=== PATIENT | female | born 1945 | race Caucasian/White ===

== ENCOUNTER 2020-11-23 08:36 | Outpatient (REF) | payer MEDICARE, SELFPAY ==
--- NOTE | ~2020-11-23 | MM_ITS ---
EXAMINATION: MM SCREENING DIGITAL BREAST TOMOSYNTHESIS, BILATERAL CLINICAL INFORMATION: Screening. Asymptomatic. The lifetime risk of breast cancer based on the Tyrer-Cuzick Model is 9%. COMPARISON: Mammography: 09/05/2019, 08/13/2018, 07/28/2017 TECHNIQUE: Digital breast tomosynthesis is performed in both the craniocaudal and mediolateral oblique views along with computer-aided detection (CAD). Synthesized 2D images are generated from the tomosynthesis. Additional left CC view is provided. FINDINGS: The breasts are almost entirely fatty (ACR BI-RADS breast composition Category a). There are no significant masses, abnormal calcifications, or other abnormalities. Background stromal densities are stable. There is benign bulky calcification central right breast. No significant changes. MM/MM tomosynthesis screening BI IMPRESSION: No mammographic evidence of malignancy. ASSESSMENT: BI-RADS 2: Benign RECOMMENDATION: Routine annual mammography screening. This patient's information was entered into a reminder system with a target due date for their next mammogram.
== END 2020-11-23 08:37 | disposition home or self-care (01) ==
LOC: HO.MAMMO 08:36
PROVIDERS: Visit Provider Student in an Organized Health Care Education/Training Program
DX: Z12.31 Encounter for screening mammogram for malignant neoplasm of breast (principal)
CPT/HCPCS: 77063; 77067

== ENCOUNTER 2022-01-08 08:30 | Outpatient (REF) | payer OTHER, SELFPAY ==
--- NOTE | ~2022-01-08 | MM_ITS ---
EXAMINATION: MM SCREENING DIGITAL BREAST TOMOSYNTHESIS, BILATERAL CLINICAL INFORMATION: Screening. Asymptomatic. The lifetime risk of breast cancer based on the Tyrer-Cuzick Model is 5%. COMPARISON: Mammography: November 23, 2020 and studies dating back to June 27, 2014 TECHNIQUE: Digital breast tomosynthesis is performed in both the craniocaudal and mediolateral oblique views along with computer-aided detection (CAD). Synthesized 2D images are generated from the tomosynthesis. FINDINGS: The breasts are almost entirely fatty (ACR BI-RADS breast composition Category a). There are no significant masses, abnormal calcifications, or other abnormalities. MM/MM tomosynthesis screening BI IMPRESSION: There are no significant changes from prior study. ASSESSMENT: BI-RADS 1: Negative RECOMMENDATION: Routine annual mammography screening. This patient's information was entered into a reminder system with a target due date for their next mammogram.
== END 2022-01-08 08:31 | disposition home or self-care (01) ==
LOC: HO.MAMMO 08:30
PROVIDERS: PCP Student in an Organized Health Care Education/Training Program; Visit Provider Student in an Organized Health Care Education/Training Program
DX: Z12.31 Encounter for screening mammogram for malignant neoplasm of breast (principal)
CPT/HCPCS: 77063; 77067

== ENCOUNTER 2022-08-07 14:44 | Outpatient (REF) | payer OTHER, SELFPAY ==
--- NOTE | ~2022-08-07 | US_ITS ---
EXAMINATION: US RETROPERITONEAL LIMITED (RENAL ONLY) CLINICAL INFORMATION: Microscopic hematuria. COMPARISON: CT abdomen and pelvis 01/22/2014. TECHNIQUE: Real-time imaging of the kidneys. FINDINGS: RIGHT KIDNEY: 9.9 x 5.0 x 5.7 cm (SAG x AP x TRV). The kidney is normal in size, contour, and echogenicity. Renal cortical thickness is normal. No renal calculi or hydronephrosis. Benign-appearing 1.0 cm cyst. LEFT KIDNEY: 8.1 x 5.7 x 4.2 cm (SAG x AP x TRV). The kidney is normal in size, contour, and echogenicity. Renal cortical thickness is normal. No renal calculi or hydronephrosis. Benign-appearing cysts measuring up to 1.3 cm. US/US renal BI IMPRESSION: Benign-appearing renal cysts. Followup imaging is not routinely recommended for benign appearing cysts..
== END 2022-08-07 14:45 | disposition home or self-care (01) ==
LOC: HO.US 14:44
PROVIDERS: Visit Provider Internal Medicine
DX: R31.29 Other microscopic hematuria (principal)
CPT/HCPCS: 76775

== ENCOUNTER 2022-12-15 10:31 | Outpatient (REF) | payer OTHER, SELFPAY ==
--- NOTE | ~2022-12-15 | US_ITS ---
EXAMINATION: US PELVIS CLINICAL INFORMATION: Pelvic pain. COMPARISON: None TECHNIQUE: Ultrasound of the pelvis is performed using both transabdominal and transvaginal transducers along with Doppler. Transvaginal imaging is performed due to inadequate visualization transabdominally. FINDINGS: Uterus: The uterus is anteverted and measures 5.8 x 2.7 x 3.3 cm. The double wall endometrial thickness is 4 mm. There is anechoic fluid in the endometrial cavity. The uterus is smooth in contour and has normal myometrial echogenicity. No visible fibroid. There are complex nabothian cysts with internal echogenic debris and without vascular tissue. Adnexa: The ovaries are not seen. No pelvic free fluid. US/US pelvic and transvaginal IMPRESSION: Anechoic fluid in the endometrial canal. The endometrial stripe is normal in thickness. Complex nabothian cysts.
== END 2022-12-15 10:32 | disposition home or self-care (01) ==
LOC: HO.US 10:31
PROVIDERS: PCP Family Medicine; Visit Provider Family Medicine
DX: R10.2 Pelvic and perineal pain (principal)
CPT/HCPCS: 76830; 76856

== ENCOUNTER 2023-01-14 09:03 | Outpatient (REF) | payer OTHER, SELFPAY ==
--- NOTE | ~2023-01-14 | MM_ITS ---
EXAMINATION: MM SCREENING DIGITAL BREAST TOMOSYNTHESIS, BILATERAL CLINICAL INFORMATION: Screening. Asymptomatic. The lifetime risk of breast cancer based on the Tyrer-Cuzick Model is 6%. COMPARISON: Mammography: January 08, 2022 and studies dating back to July 22, 2016 TECHNIQUE: Digital breast tomosynthesis is performed in both the craniocaudal and mediolateral oblique views along with computer-aided detection (CAD). Synthesized 2D images are generated from the tomosynthesis. FINDINGS: The breasts are almost entirely fatty (ACR BI-RADS breast composition Category a). There are no significant masses, abnormal calcifications, or other abnormalities. MM/MM tomosynthesis screening BI IMPRESSION: No significant changes from prior exam. ASSESSMENT: BI-RADS 1: Negative RECOMMENDATION: Routine annual mammography screening. This patient's information was entered into a reminder system with a target due date for their next mammogram.
== END 2023-01-14 09:04 | disposition home or self-care (01) ==
LOC: HO.MAMMO 09:03
PROVIDERS: PCP Family Medicine; Visit Provider Student in an Organized Health Care Education/Training Program
DX: Z12.31 Encounter for screening mammogram for malignant neoplasm of breast (principal)
CPT/HCPCS: 77063; 77067

== ENCOUNTER 2023-02-01 15:24 | Outpatient (REF) | payer OTHER, SELFPAY ==
--- NOTE | ~2023-02-01 | XR_ITS ---
EXAMINATION: XR SHOULDER, RIGHT CLINICAL INFORMATION: Pain COMPARISON: Previous x-ray July 2011 TECHNIQUE: AP external rotation, Grashey, scapular Y, and axillary views of the right shoulder. FINDINGS: Bone alignment is normal. No fracture or dislocation. Arthritis at the acromioclavicular and glenohumeral joints. Undersurface acromial osteophyte. Soft tissues are normal. XR/XR shoulder RT min 2V IMPRESSION: Arthritis.
--- NOTE | ~2023-02-01 | XR_ITS ---
EXAMINATION: XR KNEE, LEFT CLINICAL INFORMATION: Pain COMPARISON: None available. TECHNIQUE: Four views of the left knee. FINDINGS: Bone alignment is normal. No fracture or dislocation. There is arthritis at the medial femoral tibial and patellofemoral joints with joint space narrowing and osteophyte formation. There is an osteophyte at the quadriceps tendon insertion to the patella. There is no significant joint effusion. XR/XR knee LT 4V IMPRESSION: Arthritis.
== END 2023-02-01 15:25 | disposition home or self-care (01) ==
LOC: HO.XRAY 15:24
PROVIDERS: PCP Family Medicine; Visit Provider Family Medicine
DX: M25.511 Pain in right shoulder (principal); M25.562 Pain in left knee
CPT/HCPCS: 73030; 73564

== ENCOUNTER 2023-08-06 11:13 | Outpatient (REF) | payer OTHER, SELFPAY ==
[2023-08-06 14:52] LABS: Appearance Urine Clear; Color Urine Yellow; Glucose Urine UA Negative (Negative); Leukocyte Esterase Urine Small (1+) (Negative); Nitrite Urine Negative (Negative); UMIC TRIGGER UA YES; Urine Blood Moderate (2+) (Negative); Urine Ketones Negative (Negative); Urine Protein Negative (Neg-Trace)
[2023-08-06 14:52] LABS: MANUAL DIFF FLAG NO
[2023-08-06 14:57] LABS: Bacteria Urine None Seen (None Seen); Hyaline Casts Urine 0-2 /LPF (0-2); Squamous Epithelial Cell Urine 0-2 /HPF (0-2)
[2023-08-06 15:00] LABS: Basophils Percent Auto 0.1 % (0-2); Eosinophils Percent Auto 0.4 % (0-4); Hemoglobin 13.9 g/dl (12.0-16.0); Imm Gran Abs Auto 0.07 X10*3/uL (0.00-0.03); Imm Gran Pct Auto 0.8 % (0.0-0.4); Lymphocytes Absolute Auto 1.4 X10*3/uL (1.2-4.9); Lymphocytes Percent Auto 16.3 % (20-40); Mean Corpuscular HGB Conc 32.3 g/dl (31.0-35.0); Mean Corpuscular Volume 89.6 fL (80.0-98.0); Mean Platelet Volume 10.2 fL (9.4-12.3); Monocytes Absolute Auto 0.5 X10*3/uL (0.1-1.2); Neutrophils Absolute Auto 6.4 x10*3/uL (2.0-8.3); Neutrophils Percent Auto 76.4 % (45-73); Platelet Count 346 X10*3/uL (160-400); Red Cell Distribution Width 13.4 % (11.0-16.0); White Blood Count 8.4 X10*3/uL (4.8-10.8)
[2023-08-06 15:16] LABS: Alanine Aminotransferase 11 U/L (0-31); Albumin Level 4.1 g/dL (3.5-5.0); Alkaline Phosphatase 85 U/L (39-117); Anion Gap 12 (12-20); Aspartate Amino Transferase 16 U/L (5-31); Bilirubin Total 0.4 mg/dL (0.0-1.0); Blood Urea Nitrogen 14 mg/dL (9-16); Calcium 10.3 mg/dL (8.4-10.2); Carbon Dioxide 24 mmol/L (22-29); Chloride 106 mmol/L (96-108); Cholesterol 160 mg/dL (<200); Estimated Glomerular Filt Rate > 60; Glucose Fasting 108 mg/dL (60-99); HDL Cholesterol 69 mg/dL (>40); LDL Cholesterol Calculated 68 mg/dL (<100); Potassium 4.5 mmol/L (3.3-5.1); Sodium 137 mmol/L (135-145); Total Protein 7.5 g/dL (6.5-8.0); Triglycerides 118 mg/dL (<150)
[2023-08-06 15:30] LABS: Creatinine Urine 165.82 mg/dL; Microalbum/Creatinine Ratio Ur 6.6 ug/mg cr (<30)
[2023-08-06 15:41] LABS: TSH reflex Free T4 1.13 uIU/mL (0.32-4.0); Vitamin D 25-OH Total 52.6 ng/mL (>30)
== END 2023-08-06 11:14 | disposition home or self-care (01) ==
LOC: HO.CHCLDS 11:13
PROVIDERS: Visit Provider Family Medicine
DX: E11.9 Type 2 diabetes mellitus without complications (principal); R53.83 Other fatigue
CPT/HCPCS: 36415; 80053; 80061; 81001; 82043; 82306; 82570; 84443; 85025

== ENCOUNTER 2023-09-01 12:53 | Outpatient (REF) | payer OTHER, SELFPAY | END 2023-09-01 12:54 | disposition home or self-care (01) | LOC: HO.LNP 12:53 | PROVIDERS: PCP Family Medicine; Visit Provider Obstetrics & Gynecology | DX: R31.9 Hematuria, unspecified (principal); R93.5 Abnormal findings on diagnostic imaging of other abdominal regions, including retroperitoneum; N84.1 Polyp of cervix uteri; R10.2 Pelvic and perineal pain; R31.29 Other microscopic hematuria | CPT/HCPCS: 57500; 81002; 87086; 88305; 99202 ==

== ENCOUNTER 2023-09-01 12:53 | Outpatient (AMB) | payer OTHER, SELFPAY ==
--- NOTE | 2023-09-01 13:39 | A.OFFVIS_ITS ---
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 It's intermittent in nature lasting few seconds and occurs few x/week. it is associated with frequency, no dysuria or incontinence, no n/v, no feverishness, no vaginal bleeding or discharge. On 12/16/2019 Pelvic ultrasound showed the following: Uterus: The uterus is anteverted and measures 5.8 x 2.7 x 3.3 cm. The double wall endometrial thickness is 4 mm. There is anechoic fluid in the endometrial cavity. The uterus is smooth in contour and has normal myometrial echogenicity. No visible fibroid. There are complex nabothian cysts with internal echogenic debris and without vascular tissue. Adnexa: The ovaries are not seen. No pelvic free fluid. No history of vaginal bleeding PFSH Medical History Arthritis Osteoporosis Gastritis Sciatic nerve pain Family History Sister Ovarian cancer Daughter Breast cancer Father Prostate cancer Female Reproductive History Menstrual Age of Menarche: 13 control method: none Total pregnancies: 2 Full term: 2 Number of Living Children: 2 Date of last pap smear: 07/06/14 (negative) Review of Systems Const All systems reviewed & are unremarkable except as noted in HPI and below Physical Exam Vital Signs: Last Vital Signs BP 124/80 09/01/23 13:46 BMI result Body Mass Index 32.9 General: Yes no CVA tenderness External Female Exam: normal external appearance and normal appearance of the urethra Speculum Exam - Vagina: normal appearance of the vagina, normal palpation, no lesions and no masses Speculum Exam - Cervix: normal appearance of the cervix, normal palpation, no lesions, no masses, nontender and Other cervical findings present (Endocervical polyp) Bimanual exam- vagina & uterus: normal bimanual exam, normal palpation, uterine size normal, normal palpation, uterine shape normal, No Cervical tenderness present and non-tender Bimanual Exam- Adnexa, other: normal adnexae Back/Spine/Pelvis Back: no CVA tenderness Office Procedures [facility] PLANS STAFF OFFICER Biopsy Before the procedure was started, discussed with the patient the procedure technique, alternatives & all the risks associated with the procedure including but not limited to: bleeding , infection, uterine perforation, injury to bladder, vessels, bowels, possible need for transfusion with all its risks, and others. All questions were answered, the patient verbalized understanding and signed the consent. Urine test done in the office was negative Using a long Sasha Clamp the endocervical polyp was grasped and twisted around till it came off, hemostasis was secured using pressure. The patient tolerated the procedure well. Instructions were given to the patient to call if bleeding, temp>100.4 occur. The patient verbalized understanding and agreed with the plan. This note was generated with a voice recognition program. Some errors may have been overlooked during the review of this note. Sometimes these errors may affect the content or meaning of a given sentence. [id number] of Cervix Procedure code (CPT) selection complete Assessment & Plan Assessment & Plan (1) Abnormal endometrial ultrasound: Code(s): R93.5 - Abnormal findings on diagnostic imaging of other abdominal regions, including retroperitoneum Plan: Discussed with the patient the finding on ultrasound showing anechoic endometrial fluid with an endometrial thickness of 4 mm on ultrasound was done in 12/31, will repeat ultrasound, check the result and treat accordingly, instructions given the patient to schedule a 2 week ultrasound follow-up appointment with possible endometrial sampling to rule out endometrial pathology including endometrial hyperplasia and/or malignancy. Instructions given the patient to schedule an ultrasound and a follow-up appointment. All questions answered, the patient verbalized understanding (2) Endocervical polyp: Code(s): N84.1 - Polyp of cervix uteri Plan: Discussed with the patient the finding on pelvic exam, endocervical polyp, recommended polypectomy. The patient agreed, see procedure note (3) Pelvic pain: Code(s): R10.2 - Pelvic and perineal pain Plan: Repeat pelvic ultrasound ordered. Discussed with the patient the differential diagnosis of pelvic pain including but not limited to adnexal, uterine masses, pelvic infections , GI the (Irritable bowel syndrome, diverticulitis, others), , musculoskeletal, myofascial pain abdominal wall , adhesions, endometrial polyp, psychological and others causes. Will check results and treat accordingly. All questions answered, the patient verbalized understanding. Instructed the patient to schedule follow-up appointment in 2 weeks (4) Microscopic hematuria: Code(s): R31.29 - Other microscopic hematuria Plan: Urine dip done in the office was positive for microscopic blood. Will send urine for culture and schedule follow-up urine dip. If persistent microscopic hematuria with negative urine culture refer to urology. If urine cultures positive will treat accordingly. Instructions given the patient to schedule a urine dip follow-up appointment. All questions answered, the patient verbalized understand Orders: Orders AMB [facility] PL[employer] STAFF OFFICER Biopsy Today N84.1 - Polyp of cervix uteri Surgical Today N84.1 - Polyp of cervix uteri, R31.9 - Hematuria, unspecified Urine Culture Today N84.1 - Polyp of cervix uteri, R31.9 - Hematuria, unspecified Coding Level of Care Code New Pt Level 3 (05915) Diagnoses Abnormal endometrial ultrasound R93.5 Endocervical polyp N84.1 Pelvic pain R10.2 Microscopic hematuria R31.29 CPT Codes [facility] PLANS STAFF OFFICER Biopsy - CPT: 29894-Qyfelz of Cervix ([id number])
[2023-09-01 13:46] VITALS: BP 124/80; BMI 32.9
== END 2023-09-01 14:37 | disposition home or self-care (01) ==
LOC: HO.HWS 12:53
PROVIDERS: PCP Family Medicine; Visit Provider Obstetrics & Gynecology
DX: R93.5 Abnormal findings on diagnostic imaging of other abdominal regions, including retroperitoneum (principal); N84.1 Polyp of cervix uteri; R10.2 Pelvic and perineal pain; R31.29 Other microscopic hematuria
CPT/HCPCS: 57500; 99203

== ENCOUNTER 2023-10-25 15:11 | Outpatient (AMB) | payer OTHER, SELFPAY ==
[2023-10-25 15:12] VITALS: BP 122/80; BMI 32.9
--- NOTE | 2023-10-25 15:12 | MHC.OFFVIS ---
Intake Vital Signs 10/25/23 15:12 Height 5 ft 3 in Weight 186 lb BMI 32.9 BP 122/80 Intake Visit Reasons: urine dip bx results Implementation Specialist Required: Yes Implementation Specialist Language: Library Science Instructor Name: Ever [id number] Allergies No Known Allergies Allergy (Verified 10/25/23 15:17) Is last menstrual period known: No Post menopausal: Yes Patient : No HPI HPI Comments History of Present Illness Details Presenting for repeat urine dip and discuss the results the pathology of polypectomy. Urine culture was negative. Pelvic ultrasound not done . PFSH Medical History Arthritis Osteoporosis Gastritis Sciatic nerve pain Family History Sister Ovarian cancer Daughter Breast cancer Father Prostate cancer Female Reproductive History Menstrual Age of Menarche: 13 control method: none Review of Systems Const All systems reviewed & are unremarkable except as noted in HPI and below Reports as per HPI and Reports no additional complaints GI Reports no additional complaints Reports no additional complaints Physical Exam Vital Signs: Last Vital Signs BP 122/80 10/25/23 15:12 BMI result Body Mass Index 32.9 Results AMB Urinalysis, Automated UA Leukoctes 2 Kishor/uL Last Edit by NIKOS Figueroa on 10/25/23 15:21 UA Nitrite Negative Last Edit by NIKOS Figueroa on 10/25/23 15:21 UA Urobilinogen 0 mg/dL Last Edit by NIKOS Figueroa on 10/25/23 15:21 UA Protein 1 mg/dL Last Edit by NIKOS Figueroa on 10/25/23 15:21 UA pH 6 Last Edit by NIKOS Figueroa on 10/25/23 15:21 UA Blood 3 Hemal/uL Last Edit by NIKOS Figueroa on 10/25/23 15:21 UA Specific Webster 1.030 Last Edit by NIKOS Figueroa on 10/25/23 15:21 UA Ketone Negative Last Edit by NIKOS Figueroa on 10/25/23 15:21 UA Bilirubin 0 mg/dL Last Edit by NIKOS Figueroa on 10/25/23 15:21 UA Glucose 0 mg/dL Last Edit by NIKOS Figueroa on 10/25/23 15:21 Results Reviewed Results Reviewed: Laboratory Last Values Urine pH (Auto) 6 10/25/23 15:20 Specific Webster (Auto) 1.030 10/25/23 15:20 Urine Protein (Auto) 1 mg/dL 10/25/23 15:20 Glucose (UA)(Auto) 0 mg/dL 10/25/23 15:20 Urine Ketones (Auto) Negative 10/25/23 15:20 Urine Blood (Auto) 3 Hemal/uL 10/25/23 15:20 Urine Nitrite (Auto) Negative 10/25/23 15:20 Urine Bilirubin (Auto) 0 mg/dL 10/25/23 15:20 Urine Urobilinogen (Auto) 0 mg/dL 10/25/23 15:20 Leukocyte Esterase (Auto) 2 Kishor/uL 10/25/23 15:20 Assessment & Plan Assessment & Plan (1) Microscopic hematuria: Code(s): R31.29 - Other microscopic hematuria Plan: Repeat urine dip showed persistent microscopic hematuria, since urine culture was negative, will order CT scan and refer to urology for further management (2) Abnormal endometrial ultrasound: Code(s): R93.5 - Abnormal findings on diagnostic imaging of other abdominal regions, including retroperitoneum Plan: Ultrasound ordered, instructions given the patient to schedule an ultrasound follow-up appointment. (3) Endocervical polyp: Code(s): N84.1 - Polyp of cervix uteri Plan: Discussed with patient the results the pathology, the patient was reassured. All questions answered, the patient verbalized understanding Orders: Orders US pelvic and transvaginal Today R93.5 - Abnormal findings on diagnostic imaging of other abdominal regions, including retroperitoneum CT abdomen pelvis wo/w IV con Today R31.29 - Other microscopic hematuria AMB Urinalysis Automated Today R31.29 - Other microscopic hematuria Referrals Urology Referral R31.29 - Other microscopic hematuria Coding Level of Care Code Est Pt Level 3 (26082) Diagnoses Microscopic hematuria R31.29 Abnormal endometrial ultrasound R93.5 Endocervical polyp N84.1
== END 2023-10-25 15:31 | disposition home or self-care (01) ==
LOC: HO.HWS 15:11
PROVIDERS: PCP Family Medicine; Visit Provider Obstetrics & Gynecology
DX: R31.29 Other microscopic hematuria (principal); R93.5 Abnormal findings on diagnostic imaging of other abdominal regions, including retroperitoneum; N84.1 Polyp of cervix uteri
CPT/HCPCS: 99213

== ENCOUNTER → 2023-10-25 15:11 | Outpatient (BNVA) | payer OTHER, SELFPAY | PROVIDERS: PCP Family Medicine; Visit Provider Obstetrics & Gynecology | DX: R93.5 Abnormal findings on diagnostic imaging of other abdominal regions, including retroperitoneum (principal); R31.29 Other microscopic hematuria; N84.1 Polyp of cervix uteri | CPT/HCPCS: 81003; 99212 ==

== ENCOUNTER 2023-11-09 07:16 | Outpatient (REF) | payer OTHER, SELFPAY ==
[2023-11-09 08:11] LABS: Blood Urea Nitrogen 17 mg/dL (9-16); Estimated Glomerular Filt Rate > 60
== END 2023-11-09 07:17 | disposition home or self-care (01) ==
LOC: HO.LAB 07:16
PROVIDERS: PCP Family Medicine; Visit Provider Obstetrics & Gynecology
DX: R93.5 Abnormal findings on diagnostic imaging of other abdominal regions, including retroperitoneum (principal)
CPT/HCPCS: 36415; 82565; 84520

== ENCOUNTER 2023-11-22 15:05 | Outpatient (REF) | payer OTHER, SELFPAY ==
--- NOTE | ~2023-11-22 | US_ITS ---
EXAMINATION: US PELVIS CLINICAL INFORMATION: Abnormal findings on diagnostic imaging prior ultrasound 12/15/2022. Postmenopausal. COMPARISON: 12/16/2022 TECHNIQUE: Ultrasound of the pelvis is performed using both transabdominal and transvaginal transducers along with Doppler. Transvaginal imaging is performed due to inadequate visualization transabdominally. Transabdominal ultrasound images limited due to low bladder volume and bowel gas. FINDINGS: The uterus measures 4.7 x 1.9 x 2.6 cm. No discrete fibroids identified. 1.2 x 1.1 x 1.1 cm complex nabothian cysts with internal echogenic debris. Previous exam of 12/15/2022 demonstrated a 1.2 x 1.0 x 1.1 cm complex nabothian cysts. The double-wall endometrial thickness is 2 mm, previously 4 mm. Trace amount of fluid within the endometrial cavity, decreased since the prior exam. Bilateral ovaries were not visualized. No significant free fluid. US/US pelvic and transvaginal IMPRESSION: 1. The double wall endometrial thickness is 2 mm, previously 4 mm. Trace amount of fluid within the endometrial cavity, decreased since the prior exam. 2. Bilateral ovaries were not visualized. 3. Complex 1.2 cm nabothian cyst with internal echogenic debris. Previous exam of 12/15/2022 demonstrated a 1.2 cm complex nabothian cyst.
== END 2023-11-22 15:06 | disposition home or self-care (01) ==
LOC: HO.US 15:05
PROVIDERS: PCP Family Medicine; Visit Provider Obstetrics & Gynecology
DX: R93.5 Abnormal findings on diagnostic imaging of other abdominal regions, including retroperitoneum (principal)
CPT/HCPCS: 76830; 76856

== ENCOUNTER 2023-12-21 13:49 | Outpatient (REF) | payer OTHER, SELFPAY ==
[2023-12-21 16:38] LABS: Urine Cytology See Pathology rpt
== END 2023-12-21 13:50 | disposition home or self-care (01) ==
LOC: HO.LNP 13:49
PROVIDERS: PCP Family Medicine; Visit Provider Nurse Practitioner Family
DX: R31.29 Other microscopic hematuria (principal); M81.0 Age-related osteoporosis without current pathological fracture; R33.9 Retention of urine, unspecified; Z79.899 Other long term (current) drug therapy
CPT/HCPCS: 81003; 88112; 99202

== ENCOUNTER 2023-12-21 13:49 | Outpatient (AMB) | payer OTHER, SELFPAY ==
--- NOTE | 2023-12-21 14:00 | A.OFFVIS_ITS ---
Intake Intake Visit Reasons: micro hematuria Intake Note: Patient presents today for a follow-up Meds- Tolterodine, Allergies to Antibiotic- No Known Allergies Blood Thinner- Aspirin Fire Assistant Required: Yes Fire Assistant Name: STEPH HOLLOWAYANGEL Accompanied by: Self / Same As Patient Allergies No Known Allergies Allergy (Verified 12/21/23 22:01) Medication List - Last Reconciled 12/21/23 by ALFA Ramirez- albuterol sulfate 90 mcg/actuation inhalation ammonium lactate 12% 1 appl topical BID aspirin 1 tab PO DAILY blood sugar diagnostic (OneTouch Ultra Test strips) As directed blood-glucose meter (Hexaformeruch Ultra2 Meter) As directed calcium carbonate-vitamin D3 600 mg-10 mcg (400 unit) tabs PO DAILY clonazepam mg PO clotrimazole-betamethasone 1-0.05 % appl topical fluticasone propionate 250 mcg/actuation (Flovent Diskus) inhalation ibuprofen mg PO lancets (FreeStyle Lancets) As directed loratadine 10 mg PO DAILY meclizine mg PO nitroglycerin 0.4%(w/w) (Rectiv) SC DAILY omeprazole 20 mg PO DAILY pantoprazole 40 mg PO DAILY peg 400-propylene glycol 0.4-0.3 % (Systane (propylene glycol)) 1 drp ophthalmic (eye) rosuvastatin 40 mg PO DAILY tizanidine 2 mg PO TID tolterodine ER 4 mg PO DAILY triamcinolone acetonide 0.5% appl topical HPI HPI Comments History of Present Illness Details Rebeca is a very pleasant 78-year-old Belarusian-speaking female patient of Dr. Combs. She has a PMH of arthritis, osteoporosis, gastritis, hyperlipidemia, and sciatica nerve pain. She presents to the office today as a new patient for microscopic hematuria. In discussion with the patient today she reports having followed up with manager gyn at which time she was noted to have microscopic hematuria in recommendations were made for urology referral. It appears CT urogram was ordered however patient with upcoming appointment on 12/27. In discussion with the patient today she denies any bothersome urinary issues or concerns. She denies any previous chemical workplace exposure and or history of smoking. She denies urinary urgency, urinary frequency, inco ntinence, nocturia, gross hematuria, dysuria, foul smelling urine, changes to urinary stream, flank pain, fever, and or chills. She is happy with her current voiding parameters on 4 mg of tolterodine daily. Discussed at length potential causes for microscopic hematuria. Discussed further workup versus surveillance monitoring. Discussed risks and benefits of these interventions. She otherwise offers no other issues or concerns at this time. [facility] Medical History Arthritis Osteoporosis Gastritis Sciatic nerve pain Family History Sister Ovarian cancer Daughter Breast cancer Father Prostate cancer Female Reproductive History Menstrual Age of Menarche: 13 Review of Systems Const Reports as per HPI Eyes Reports no additional complaints ENT Reports no additional complaints Card Reports as per HPI Resp Reports no additional complaints GI Reports as per HPI Reports as per HPI Musc Reports as per HPI Neuro Reports no additional complaints Psych Reports no additional complaints Endo Reports as per HPI Monroe/Lymph Reports no additional complaints Aller/Immun Reports no additional complaints Physical Exam Const General: cooperative, healthy appearing, comfortable, no acute distress, well developed, alert and awake Orientation/consciousness: patient oriented x3 Limitations: no limitations HEENT Head: Yes normal to inspection, Yes normocephalic and Yes atraumatic Ears: hearing grossly normal bilaterally Eyes General: appearance normal, both eyes and all related structures Neck Neck: Yes normal visual inspection and Yes trachea midline Chest Chest palpation & inspection: normal inspection of the chest Resp Effort & Inspection: normal respiratory effort and able to speak in complete sentences Cardio Rate: regular rate GI Inspection: Yes normal to inspection General: Yes no CVA tenderness Back/Spine/Pelvis Back: no CVA tenderness Skin General skin exam: no rashes or lesions noted Neuro General: patient oriented x3 Extrem General: Yes normal to inspection Psych Appearance: grossly normal and well kempt Mental Status: mental status grossly normal Speech and movement: Normal speech and movement present and Clear speech present Affect: normal affect Attitude: cooperative Thought process: Normal thought process present Thought content: Normal thought content present Insight: Fair insight present (Psych) Judgement: Fair judgement present (Psych) Results AMB Urinalysis, Automated UA Leukoctes 15 Kishor/uL Last Edit by Lina Leavitt [facility] on 12/21/23 14:11 UA Nitrite Negative Last Edit by Lina Leavittjersey Leavitt [facility] on 12/21/23 14: 11 UA Urobilinogen 0.2 mg/dL Last Edit by Lina Leavittjersey Leavitt [facility] on 4 14:11 UA Protein 15 mg/dL Last Edit by [facility] on 12/21/23 14:1 1 UA pH 6.0 [facility] on 12/21/23 14:11 UA Blood 200 Hemal/uL [facility] on 12/21/23 14:1 1 UA Specific Lejunior 1.015 Last Edit by Lina Leavitt [facility] on 14:11 UA Ketone Positive [facility] on 12/21/23 14:1 1 5MG/DL [facility] 12/21/23 14:11 UA Bilirubin 0 mg/dL Last Edit [facility] on 12/21/23 14: 11 UA Glucose 0 mg/dL Last Edit [facility], [facility] on 12/21/23 14:11 Results Reviewed Results Reviewed: Laboratory Last Values Urine pH (Auto) 6.0 12/21/23 14:06 Specific Lejunior (Auto) 1.015 12/21/23 14:06 Urine Protein (Auto) 15 mg/dL 12/21/23 14:06 Glucose (UA)(Auto) 0 mg/dL 12/21/23 14:06 Urine Ketones (Auto) Positive 12/21/23 14:06 Urine Blood (Auto) 200 Hemal/uL 12/21/23 14:06 Urine Nitrite (Auto) Negative 12/21/23 14:06 Urine Bilirubin (Auto) 0 mg/dL 12/21/23 14:06 Urine Urobilinogen (Auto) 0.2 mg/dL 12/21/23 14:06 Leukocyte Esterase (Auto) 15 Kishor/uL 12/21/23 14:06 Assessment & Plan Assessment & Plan (1) Microscopic hematuria: Code(s): R31.29 - Other microscopic hematuria Plan In office urinalysis results reviewed with the patient today; as noted above; will send for urine cytology. Patient denies any bothersome urinary issues or concerns. She reports be happy with current voiding parameters on tolterodine 4 mg daily. Discussed at length potential causes of microscopic hematuria. Discussed treatment options with surveillance monitoring verses further workup; this was discussed at length; discussed risks and benefits of these interventions. Keep scheduled CT as discussed. Will schedule for in office cystoscopy for further assessment evaluation. Follow-up in office cystoscopy; or sooner with any issues, concerns, and or questions. Orders: Orders AMB Urinalysis Automated Today R33.9 - Retention of urine, unspecified Urine Cytology Today R31.29 - Other microscopic hematuria Patient Instructions: The patient had an opportunity to ask questions regarding the treatment plan. All questions were answered. Physical exam, labs, and imaging were discussed and reviewed in detail. As well as risks, benefits, and discussion of treatment choices. No major barriers to understanding were identified. The patient expressed understanding and agreement with the above treatment plan. The patient was made aware they should contact our office by phone for worsening of their current condition, the appearance of new symptoms, or with any questions or concerns. Compliance is encouraged with any medications and follow up testing that is ordered. It is a privilege to be allowed the opportunity to participate in? your urological care.? Again, if you have any questions or concerns If you have any questions or concerns please do not hesitate to contact me. The office is [phone]. This note is constructed using voice recognition software. While every effort has been made to ensure accuracy otolaryngologist errors may have been included. Yours sincerely, SARAH Ramirez Coding Level of Care Code New Pt Level 3 (00425) Diagnoses Microscopic hematuria R31.29
== END 2023-12-21 14:48 | disposition home or self-care (01) ==
PROVIDERS: PCP Family Medicine; Visit Provider Nurse Practitioner Family
DX: R31.29 Other microscopic hematuria (principal)
CPT/HCPCS: 99203

== ENCOUNTER 2023-12-28 10:36 | Outpatient (REF) | payer OTHER, SELFPAY ==
--- NOTE | ~2023-12-28 | CT_ITS ---
EXAMINATION: CT ABDOMEN AND PELVIS WITHOUT AND WITH CONTRAST CLINICAL INFORMATION: Microscopic hematuria. COMPARISON: CT abdomen and pelvis dated 01/22/2014. TECHNIQUE: Multidetector volumetric imaging was performed of the abdomen and pelvis before and after the IV administration of 85 mL of Omnipaque 350 intravenous contrast. Sagittal and coronal reformatted images were obtained on the technologist's workstation. This CT examination was performed using dose optimization techniques as appropriate, variously including the following: *Automated exposure control *Adjustment of mA and/or kV according to patient size (this includes techniques or standardized protocols for targeted exams where dose is matched to indication/reason for exam; i.e. extremities or head) *Use of iterative reconstruction technique DLP: 993.00 mGy-cm FINDINGS: LUNG BASES: The visualized lung bases are unremarkable. There is an incompletely covered left Bochdalek hernia, which is new from prior. LIVER, GALLBLADDER, AND BILIARY TREE: The liver is normal in size, shape, and attenuation. No focal hepatic lesion or biliary ductal dilatation is present. The gallbladder is unremarkable with no evidence of radiopaque gallstones, gallbladder wall thickening, or obvious pericholecystic inflammatory changes. PANCREAS: Unremarkable SPLEEN: Unremarkable ADRENAL GLANDS: Unremarkable KIDNEYS AND URETERS: The kidneys are normal in size, shape, and attenuation. At the lower pole of the left kidney (2:38), a 1.2 cm mildly complex (Bosniak 2) cyst is seen, with fine septation. This is likely benign and requires no imaging follow-up. There are multiple further small low-attenuation bilateral renal cysts, too small for full characterization with CT. These require no imaging follow-up. No hydronephrosis, hydroureter, or calculi seen. No perinephric stranding. BLADDER: Unremarkable GASTROINTESTINAL TRACT: There is a mild stool burden. There is mild diverticulosis, without acute diverticulitis. No obstruction, free intraperitoneal air or abscess is seen. There is no focal bowel wall thickening. The vermiform appendix appears normal. ABDOMINAL WALL: No significant hernia is appreciated. LYMPH NODES: Normal VASCULAR: Unremarkable PELVIC VISCERA: The uterus and adnexa are unremarkable. OSSEOUS STRUCTURES: There is multi-level marked lower thoracic and mild lumbar spondylosis. No acute or aggressive osseous finding is noted. CT/CT abdomen pelvis wo/w IV con IMPRESSION: 1. There are likely benign mildly complex (Bosniak 2) and benign simple (Bosniak 1) bilateral renal cysts. These require no imaging follow-up. No urinary mass, calculus or hydronephrosis is seen bilaterally. 2. There is mild diverticulosis, without acute diverticulitis. 3. No abdominopelvic mass, free fluid lymphadenopathy is seen. 4. There are degenerative changes of the thoracolumbar spine. Fleischner guidelines were followed.
[2023-12-28] MEDS: iohexoL 350 MG/ML 100 ML INFUS..BTL IV (11:45)
[2023-12-29 07:30] LABS: Creatinine POC 0.9 mg/dL (0.5-1.4); GFR POC > 60
== END 2023-12-28 10:37 | disposition home or self-care (01) ==
LOC: HO.CT 10:36
PROVIDERS: PCP Family Medicine; Visit Provider Obstetrics & Gynecology
DX: R31.29 Other microscopic hematuria (principal)
CPT/HCPCS: 74178; 82565; Q9967

== ENCOUNTER 2023-12-29 10:33 | Outpatient (AMB) | payer OTHER, SELFPAY ==
--- NOTE | 2023-12-29 10:36 | MHC.OFFVIS ---
Intake Vital Signs 12/29/23 10:40 Height 5 ft 3 in Weight 185 lb 3.013 oz BMI 32.8 BP 122/74 Intake Visit Reasons: U/S results Density Control Puncher Required: Yes Density Control Puncher Language: Automatic Pinsetter Mechanic Name: Teressa KNOTT Information Interpreted: non-clinical & clinical Accompanied by: Friend Allergies No Known Allergies Allergy (Verified 12/29/23 10:41) HPI HPI Comments History of Present Illness Details Presenting for follow-up ultrasound. No complaints no vaginal bleeding or any other concerns. Pelvic ultrasound showed the following: The uterus measures 4.7 x 1.9 x 2.6 cm. No discrete fibroids identified. 1.2 x 1.1 x 1.1 cm complex nabothian cysts with internal echogenic debris. Previous exam of 12/15/2022 demonstrated a 1.2 x 1.0 x 1.1 cm complex nabothian cysts. The double-wall endometrial thickness is 2 mm, previously 4 mm. Trace amount of fluid within the endometrial cavity, decreased since the prior exam. Bilateral ovaries were not visualized. No significant free fluid. [facility] Medical History Arthritis Osteoporosis Gastritis Sciatic nerve pain Family History Sister Ovarian cancer Daughter Breast cancer Father Prostate cancer Female Reproductive History Menstrual Age of Menarche: 13 Review of Systems Const All systems reviewed & are unremarkable except as noted in HPI and below Reports as per HPI and Reports no additional complaints GI Reports no additional complaints Reports no additional complaints Physical Exam Vital Signs: Last Vital Signs BP 122/74 12/29/23 10:40 BMI result Body Mass Index 32.8 Assessment & Plan Assessment & Plan (1) Fluid in endometrial cavity: Code(s): N85.9 - Noninflammatory disorder of uterus, unspecified Plan: Discussed with the patient the finding on ultrasound showing decreased amount of endometrial fluid with 2 mm endometrial stripe, since there is no history of vaginal bleeding there is no indication for endometrial sampling, the negative predictive value a thin endometrium below 5 mm is very high especially in patient with no history of vaginal bleeding. Instructions given the patient to call in case of spotting or bleeding in the future. All questions answered, the patient verbalized understanding Coding Level of Care Code Est Pt Level 3 (40955) Diagnoses Fluid in endometrial cavity N85.9
[2023-12-29 10:40] VITALS: BP 122/74; BMI 32.8
== END 2023-12-29 11:57 | disposition home or self-care (01) ==
LOC: HO.HWS 10:33
PROVIDERS: PCP Family Medicine; Visit Provider Obstetrics & Gynecology
DX: N85.9 Noninflammatory disorder of uterus, unspecified (principal)
CPT/HCPCS: 99213

== ENCOUNTER → 2023-12-29 10:33 | Outpatient (BNVA) | payer OTHER, SELFPAY | PROVIDERS: PCP Family Medicine; Visit Provider Obstetrics & Gynecology | DX: N85.9 Noninflammatory disorder of uterus, unspecified (principal) | CPT/HCPCS: 99212 ==

== ENCOUNTER 2024-01-10 10:31 | Outpatient (AMB) | payer OTHER, SELFPAY ==
--- NOTE | 2024-01-10 10:33 | A.OFFVIS_ITS ---
Intake Intake Visit Reasons: ct scan results Shank Inspector Required: Yes Shank Inspector Language: Parquet Floor Layer'S Helper Name: Teressa KNOTT Information Interpreted: non-clinical & clinical Allergies No Known Allergies Allergy (Verified 12/29/23 10:41) HPI HPI Comments History of Present Illness Details The patient is scheduled tele health visit for follow-up regarding her CT scan for microscopic hematuria. CT scan showed the following: IMPRESSION: 1. There are likely benign mildly comple x (Bosniak 2) and benign simple (Bosniak 1) bilateral renal cysts. These require no imaging follow-up. No urinary mass, calculus or hydronephrosis is seen bilaterally. 2. There is mild diverticulosis, without acute diverticulitis. 3. No abdominopelvic mass, free fluid ly mphadenopathy is seen. 4. There are degenerative changes of the thoracolumbar spine. The patient has initial consult with Urology on 12/21/2023 and schedule for cystoscopy on 02/09 [facility] Medical History Arthritis Osteoporosis Gastritis Sciatic nerve pain Family History Sister Ovarian cancer Daughter Breast cancer Father Prostate cancer Female Reproductive History Menstrual Age of Menarche: 13 Review of Systems Const All systems reviewed & are unremarkable except as noted in HPI and below Reports as per HPI and Reports no additional complaints GI Reports no additional complaints Reports no additional complaints Assessment & Plan Assessment & Plan (1) Bilateral renal cysts: Comment: and micro hematuria Code(s): N28.1 - Cyst of kidney, acquired Plan: Discussed with the patient the finding on CT scan showing bilateral mildly complex renal cyst, recommended follow-up with urology as scheduled. All questions answered, the patient verbalized understanding. I spent a total of 20 minutes reviewing the chart, talking to the patient via phone and documenting in the medical record. Telehealth Telehealth Location of provider rendering services: practice address Location of patient: address on file Patient Identification confirmed using: Name, : Yes Telehealth method: voice only Patient verbally consented to treatment: Yes Patient verbally consented to billing insurance company: Yes Patient informed of any privacy concerns related to visit: Yes Coding Level of Care Code Tele Est Pt Level 1 (79070) Diagnoses Bilateral renal cysts N28.1
== END 2024-01-10 17:22 ==
LOC: HO.HWS 10:31
PROVIDERS: PCP Family Medicine; Visit Provider Obstetrics & Gynecology
DX: N28.1 Cyst of kidney, acquired (principal)
CPT/HCPCS: 99211

== ENCOUNTER → 2024-01-10 10:31 | Outpatient (BNVA) | payer OTHER, SELFPAY | PROVIDERS: PCP Family Medicine; Visit Provider Obstetrics & Gynecology ==

== ENCOUNTER 2024-01-21 09:39 | Outpatient (REF) | payer OTHER, SELFPAY ==
--- NOTE | ~2024-01-21 | MM_ITS ---
EXAMINATION: MM SCREENING DIGITAL BREAST TOMOSYNTHESIS, BILATERAL CLINICAL INFORMATION: Screening. Asymptomatic. COMPARISON: Mammography: This study is compared with prior exams dating back to 2019. TECHNIQUE: Digital breast tomosynthesis is performed in both the craniocaudal and mediolateral oblique views along with computer-aided detection (CAD). Synthesized 2D images are generated from the tomosynthesis. FINDINGS: The breasts are almost entirely fatty (ACR BI-RADS breast composition Category a). There are no significant masses, abnormal calcifications, or other abnormalities. There is an area of coarse benign calcification in the central portion of the right breast. MM/MM tomosynthesis screening BI IMPRESSION: No mammographic evidence of malignancy. ASSESSMENT: BI-RADS BI-RADS 2 - Benign Findings RECOMMENDATION: Routine annual mammography screening. 1 year F/U This examination should not preclude the clinical evaluation of a suspicious palpable abnormality. This patient's information was entered into a reminder system with a target due date for their next mammogram.
== END 2024-01-21 09:40 | disposition home or self-care (01) ==
LOC: HO.MAMMO 09:39
PROVIDERS: Visit Provider Family Medicine
DX: Z12.31 Encounter for screening mammogram for malignant neoplasm of breast (principal)
CPT/HCPCS: 77063; 77067

== ENCOUNTER → 2024-01-21 10:00 | Outpatient (BNV) | payer OTHER, SELFPAY | PROVIDERS: Visit Provider Radiology Diagnostic Radiology | DX: Z12.31 Encounter for screening mammogram for malignant neoplasm of breast (principal) | CPT/HCPCS: 77063; 77067 ==

== ENCOUNTER 2024-02-10 09:57 | Outpatient (AMB) | payer OTHER, SELFPAY ==
--- NOTE | 2024-02-10 10:18 | A.OFFVIS_ITS ---
Intake Visit Reasons: cysto Intake Note: Patient presents today for a CYSTOSCOPY Procedure: Meds- Tolterodine, Allergies to Antibiotic- No Known Allergies Blood Thinner- Aspirin Urinalysis test clear for Cysto? YES Disposable Uro-G HD Cystoscope Cannula: Lot: [id number] Exp: 10/12/2026 Neuroradiologist Required: Yes Neuroradiologist Language: British Information Interpreted: non-clinical & clinical Merchandising Execution Manager: Merchandising Execution Manager Present Accompanied by: Self / Same As Patient Allergies No Known Allergies Allergy (Verified 02/10/24 10:19) HPI Comments Details: 02/10/2024--Rebeca is a 78-year-old female was initially evaluated by nurse practitioner Alexandra Palacio for microscopic hematuria. Certified British i nterpreter present She was sent for CT abdomen and pelvis with and without IV contrast. I have reviewed results-CT AP-12/28/2023 bilateral renal cyst type 2 no suspicious masses no renal calculi. Urine cytology was sent on 12/21/2023 which was negative for malignant cells. Cystoscopy findings: Bladder wall thickening, no suspicious bladder lesions visualized. The patient states she has urinary symptoms of frequency. Plan to prescribe tolterodine 4 mg daily Review of chart: 12/21/2023-has Rebeca is a very pleasant 78-year-old British-speaking female patient of Dr. Combs. She has a PMH of arthritis, osteoporosis, gastritis, hyperlipidemia, and sciatica nerve pain. She presents to the office today as a new patient for microscopic hematuria. 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 It appears CT urogram was ordered however patient with upcoming appointment on 12/27. In discussion with the patient today she denies any bothersome urinary issues or concerns. She denies any previous chemical workplace exposure and or history of smoking. She denies urinary urgency, urinary frequency, incontinence, nocturia, gross hematuria, dysuria, foul smelling urine, changes to urinary stream, flank pain, fever, and or chills. She is happy with her current voiding parameters on 4 mg of tolterodine daily. Discussed at length potential causes for microscopic hematuria. Discussed further workup versus surveillance monitoring. Discussed risks and benefits of these interventions. She otherwise offers no other issues or concerns at this time. 02/10/2024--Plan to prescribe tolterodine 4 mg daily for overactive bladder symptoms PFSH Medical History Arthritis Osteoporosis Gastritis Sciatic nerve pain Surgical History Hx of cystoscopy Family History Sister Ovarian cancer Daughter Breast cancer Father Prostate cancer Social History Alcohol intake: current Alcohol intake frequency: does not drink Patient Tobacco Use Status: Never used Tobacco Female Reproductive History Menstrual Age of Menarche: 13 Review of Systems Const All systems reviewed & are unremarkable except as noted in HPI and below Reports no additional complaints Eyes Reports no additional complaints ENT Reports no additional complaints Card Reports no additional complaints Resp Reports no additional complaints GI Reports no additional complaints Reports as per HPI Musc Reports no additional complaints Skin/Breast Reports system reviewed and no additional complaints, except as documented Neuro Reports no additional complaints Psych Reports no additional complaints Endo Reports no additional complaints Monroe/Lymph Reports no additional complaints Aller/Immun Reports no additional complaints Office Procedures Cystoscopy Consent Discussed risk and benefit or proposed procedure with the patient. Information consent for procedure given to the patient. Discussed technical aspects, risks, benefits and alternatives in full. Addressed all of the patient's questions and concerns regarding the procedure. The patient demonstrated knowledge and understanding. They wish to proceed with this procedure. Preparation The patient was prepped in the usual manner. A director compensation was present and in the room. Genitalia was prepped with betadine solution in a sterile manner. Lidocaine Jelly 2% was placed into the urethra and 16Fr flexible Olympus cystoscope was inserted into the meatus after adequate lubrication. Procedure Time out per protocol performed. Bladder Inspection Bladder Inspection: The bladder was inspected in its entirety with utilization retroflexion displaying: Tumor(s): No suspicious lesions visualized Trabeculation: Present-Mild to moderate Mucosal Erthema: NA Orifices: normal shape and position Urethra: normal Cystoscopy findings: Bladder wall thickening, no suspicious bladder lesions visualized [id number] DISPOSABLE SCOPE URO-G FLEXIBLE SCOPE Procedure code (CPT) selection complete Office Meds lidocaine HCl 2 % mucosal jelly in applicator Performing Provider: Alisha Hercules MD [place] Administered by: Mo Eid LPN on 02/10/24 10:55 2 Dose Route Admin Location Dispensed Lot Number Expiration Date ND Pulmonary Physician 10 mL intra-urethral 20 mL naproxen 500 mg tablet Performing Provider: Alisha Hercules MD [place] [facility] [place] [facility] Administered by: Mo Eid LPN on 02/10/24 10:55 Dose Route Admin Location Dispensed Lot Number Expiration Date NDC Pulmonary Physician 500 mg PO 1 tab ciprofloxacin HCl 500 mg tablet Performing Provider: Alisha Hercules MD [place] [facility] [facility] Administered by: Mo Eid LPN on 02/10/24 10:55 Dose Route Admin Location Dispensed Lot Number Expiration Date NDC Pulmonary Physician 500 mg PO 1 tab Results AMB Urinalysis, Automated UA Leukoctes 0 Kishor/uL Last Edit by NIKOS Garrido on 02/10/24 10:47 UA Nitrite Negative Last Edit by NIKOS Garrido on 02/10/24 10:47 UA Urobilinogen 0.2 mg/dL Last Edit by NIKOS Garrido on 02/10/24 10:4 7 UA Protein 15 mg/dL Last Edit by NIKOS Garrido on 02/10/24 10:47 UA pH 5.5 Last Edit by NIKOS Garrido on 02/10/24 10:47 UA Blood 200 Hemal/uL Last Edit by NIKOS Garirdo on 02/10/24 10:47 3+ Marcella Felix 02/10/24 10:47 UA Specific [place] 1.025 Last Edit by NIKOS Garrido on 02/10/24 10: 47 UA Ketone Positive Last Edit by NIKOS Garrido on 02/10/24 10:47 5 mg/dL Marcella Felix 02/10/24 10:47 UA Bilirubin 0 mg/dL Last Edit by NIKOS Garrido on 02/10/24 10:47 UA Glucose 0 mg/dL Last Edit by NIKOS Garrido on 02/10/24 10:47 Results Reviewed Results Reviewed: Laboratory Last Values Urine pH (Auto) 5.5 02/10/24 10:20 Specific [place] (Auto) 1.025 02/10/24 10:20 Urine Protein (Auto) 15 mg/dL 02/10/24 10:20 Glucose (UA)(Auto) 0 mg/dL 02/10/24 10:20 Urine Ketones (Auto) Positive 02/10/24 10:20 Urine Blood (Auto) 200 Hemal/uL 02/10/24 10:20 Urine Nitrite (Auto) Negative 02/10/24 10:20 Urine Bilirubin (Auto) 0 mg/dL 02/10/24 10:20 Urine Urobilinogen (Auto) 0.2 mg/dL 02/10/24 10:20 Leukocyte Esterase (Auto) 0 Kishor/uL 02/10/24 10:20 Collected: 12/21/23 [facility] Received: 12/22/23 Diagnosis Urine: Negative for high-grade urothelial carcinoma. See comment. COMMENT: Cellular specimen consisting of single urothelial cells, squamous cells and abundant acute inflammatory cells. Clinical History Microscopic hematuria Material Received Urine Gross Description 20 cc clear yellow fluid Date of Service: 12/28/23 CT ABDOMEN AND PELVIS WITHOUT AND WITH CONTRAST CLINICAL INFORMATION: Microscopic hematuria. COMPARISON: CT abdomen and pelvis dated 01/22/2014. TECHNIQUE: Multidetector volumetric imaging was performed of the abdomen and pelvis before and after the IV administration of 85 mL of Omnipaque 350 intravenous contrast. Sagittal and coronal reformatted images were obtained on the technologist's workstation. This CT examination was performed using dose optimization techniques as appropriate, variously including the following: *Automated exposure control *Adjustment of mA and/or kV according to patient size (this includes techniques or standardized protocols for targeted exams where dose is matched to indication/reason for exam; i.e. extremities or head) *Use of iterative reconstruction technique DLP: 993.00 mGy-cm FINDINGS: LUNG BASES: The visualized lung bases are unremarkable. There is an incompletely covered left Bochdalek hernia, which is new from prior. LIVER, GALLBLADDER, AND BILIARY TREE: The liver is normal in size, shape, and attenuation. No focal hepatic lesion or biliary ductal dilatation is present. The gallbladder is unremarkable with no evidence of radiopaque gallstones, gallbladder wall thickening, or obvious pericholecystic inflammatory changes. PANCREAS: Unremarkable SPLEEN: Unremarkable ADRENAL GLANDS: Unremarkable KIDNEYS AND URETERS: The kidneys are normal in size, shape, and attenuation. At the lower pole of the left kidney (2:38), a 1.2 cm mildly complex (Bosniak 2) cyst is seen, with fine septation. This is likely benign and requires no imaging follow-up. There are multiple further small low-attenuation bilateral renal cysts, too small for full characterization with CT. These require no imaging follow-up. No hydronephrosis, hydroureter, or calculi seen. No perinephric stranding. BLADDER: Unremarkable GASTROINTESTINAL TRACT: There is a mild stool burden. There is mild diverticulosis, without acute diverticulitis. No obstruction, free intraperitoneal air or abscess is seen. There is no focal bowel wall thickening. The vermiform appendix appears normal. ABDOMINAL WALL: No significant hernia is appreciated. LYMPH NODES: Normal VASCULAR: Unremarkable PELVIC VISCERA: The uterus and adnexa are unremarkable. OSSEOUS STRUCTURES: There is multi-level marked lower thoracic and mild lumbar spondylosis. No acute or aggressive osseous finding is noted. IMPRESSION: 1. There are likely benign mildly complex (Bosniak 2) and benign simple (Bosniak 1) bilateral renal cysts. These require no imaging follow-up. No urinary mass, calculus or hydronephrosis is seen bilaterally. 2. There is mild diverticulosis, without acute diverticulitis. 3. No abdominopelvic mass, free fluid lymphadenopathy is seen. 4. There are degenerative changes of the thoracolumbar spine. Assessment & Plan Assessment & Plan (1) Microscopic hematuria: Code(s): R31.29 - Other microscopic hematuria Category: Medical (2) OAB (overactive bladder): Code(s): N32.81 - Overactive bladder Category: Medical Plan Hematuria workup within normal limits. Overactive bladder symptoms. Trial of tolterodine 4 mg daily. Follow-up with nurse practitioner Alexandra Plaacio Orders: Orders AMB Urinalysis Automated 02/10/24 Z13.9 - Encounter for screening, unspecified AMB Cystoscopy 02/10/24 R31.29 - Other microscopic hematuria, R10.2 - Pelvic and perineal pain, N28.1 - Cyst of kidney, acquired Medications: New tolterodine ER 4 mg PO DAILY 30 caps 5RF Patient Instructions: The patient had an opportunity to ask questions regarding treatment plan. The patient expressed understanding and agreement with the above treatment plan. The patient is aware they should contact our office by phone for worsening of their current condition or the appearance of new symptoms. Compliance is encouraged with any medications and followup testing that is ordered. It is a privilege to be allowed the opportunity to participate in the urologic care of your patient. If you have any questions or concerns regarding treatment for the above conditions please do not hesitate to contact me. The office telephone contact is [phone]. This note is constructed in part using voice recognition software. While every effort has been made to ensure accuracy utility aide errors may have been included. Yours sincerely, Alisha Hercules MD Coding Level of Care Code Est Pt Level 4 (13045) Diagnoses Microscopic hematuria R31.29 OAB (overactive bladder) N32.81 CPT Codes Cystoscopy - CPT: 85525-Zfgozyyaid ([id number])
== END 2024-02-10 11:33 | disposition home or self-care (01) ==
PROVIDERS: PCP Family Medicine; Visit Provider Urology
DX: R31.29 Other microscopic hematuria (principal); R10.2 Pelvic and perineal pain; N28.1 Cyst of kidney, acquired; Z13.9 Encounter for screening, unspecified
CPT/HCPCS: 52000; 99214

== ENCOUNTER → 2024-02-10 09:57 | Outpatient (BNVA) | payer OTHER, SELFPAY | PROVIDERS: PCP Family Medicine; Visit Provider Urology | DX: R31.29 Other microscopic hematuria (principal); R10.2 Pelvic and perineal pain; N28.1 Cyst of kidney, acquired; N32.81 Overactive bladder | CPT/HCPCS: 52000; 81003; 99212 ==

== ENCOUNTER 2024-08-17 07:41 | Outpatient (REF) | payer OTHER, SELFPAY ==
[2024-08-17 08:15] LABS: Mean Corpuscular HGB Conc 32.6 g/dl (31.0-35.0); Mean Corpuscular Hemoglobin 29.2 pg (27.0-33.0); Mean Corpuscular Volume 89.8 fL (80.0-98.0); Mean Platelet Volume 9.7 fL (9.4-12.3); Platelet Count 339 X10*3/uL (160-400); Red Blood Count 4.79 X10*6/uL (4.20-5.50); Red Cell Distribution Width 13.4 % (11.0-16.0); White Blood Count 7.9 X10*3/uL (4.8-10.8)
[2024-08-17 08:44] LABS: Alanine Aminotransferase 14 U/L (0-31); Alkaline Phosphatase 86 U/L (39-117); Anion Gap 12 (12-20); Aspartate Amino Transferase 20 U/L (5-31); Bilirubin Total 0.5 mg/dL (0.0-1.0); Blood Urea Nitrogen 18 mg/dL (9-16); Calcium 9.8 mg/dL (8.4-10.2); Carbon Dioxide 24 mmol/L (22-29); Chloride 107 mmol/L (96-108); Cholesterol 144 mg/dL (<200); Estimated Glomerular Filt Rate > 60; Glucose Random 113 mg/dL (60-115); HDL Cholesterol 65 mg/dL (>40); LDL Cholesterol Calculated 57 mg/dL (<100); Potassium 4.4 mmol/L (3.3-5.1); Sodium 139 mmol/L (135-145); Total Protein 7.2 g/dL (6.5-8.0); Triglycerides 110 mg/dL (<150)
[2024-08-17 09:00] LABS: TSH reflex Free T4 1.74 uIU/mL (0.32-4.0)
== END 2024-08-17 07:42 | disposition home or self-care (01) ==
LOC: HO.LAB 07:41
PROVIDERS: PCP Family Medicine; Visit Provider Family Medicine
DX: E11.9 Type 2 diabetes mellitus without complications (principal)
CPT/HCPCS: 36415; 80053; 80061; 84443; 85027

== ENCOUNTER 2024-10-17 15:30 | Outpatient (AMB) | payer OTHER, SELFPAY ==
--- NOTE | 2024-10-17 15:43 | A.OFFVIS_ITS ---
Intake Visit Reasons: 6m/OAB/micro hematuria Intake Note: Patient is present for Follow Up Urology Med: Tolterodine Antibiotic Allergy: None Blood Thinner: Aspirin PVR:60ml Buckle Attacher Required: Yes Buckle Attacher Language: Water Taxi Captain Services: Buckle Attacher Present Buckle Attacher Name: Barbie Accompanied by: Self / Same As Patient Allergies No Known Allergies Allergy (Verified 10/17/24 21:38) Medication List - Last Reconciled 10/17/24 by ALFA Ramirez- albuterol sulfate 90 mcg/actuation inhalation ammonium lactate 12% 1 appl topical BID aspirin 1 tab PO DAILY blood sugar diagnostic (OneTouch Ultra Test strips) As directed blood-glucose meter (OneTouch Ultra2 Meter) As directed calcium carbonate-vitamin D3 600 mg-10 mcg (400 unit) tabs PO DAILY clonazepam mg PO clotrimazole-betamethasone 1-0.05 % appl topical fluticasone propionate 250 mcg/actuation (Flovent Diskus) inhalation ibuprofen mg PO lancets (FreeStyle Lancets) As directed loratadine 10 mg PO DAILY meclizine mg PO nitroglycerin 0.4%(w/w) (Rectiv) NM DAILY omeprazole 20 mg PO DAILY pantoprazole 40 mg PO DAILY peg 400-propylene glycol 0.4-0.3 % (Systane (propylene glycol)) 1 drp ophthalmic (eye) rosuvastatin 40 mg PO DAILY tizanidine 2 mg PO TID tolterodine ER 4 mg PO DAILY triamcinolone acetonide 0.5% appl topical HPI Comments Details: Rebeca is a very pleasant 78-year-old Dutch-speaking female patient of Dr. Combs. She has a PMH of arthritis, osteoporosis, gastritis, hyperlipidemia, and sciatica nerve pain. She presents to the office today for follow-up of her microscopic hematuria in lower urinary tract symptoms. In discussion with the patient today she reports since her last office visit here approximately 6 months ago she has had no bothersome urinary issues or concerns. She reports compliance with tolterodine as prescribed. Of note, during patient's last office visit 03/03 patient underwent an in office cystoscopy with Dr. Tye Ness for persistent microscopic hematuria that noted bladder wall thickening, no suspicious bladder lesions were visualized. Previous workup has also included a CT urogram 01/01 bilateral renal cyst type 2 no suspicious masses no renal calculi. Urine cytology was sent on 12/21/2023 which was negative for malignant cells. She reports be happy with current voiding parameters. PVR 60 mL. She denies any previous history of workplace chemical exposure and or smoking history. She denies urinary urgency, urinary frequency, incontinence, nocturia, gross hematuria, dysuria, foul smelling urine, changes to urinary stream, flank pain, fever, and or chills. In office urinalysis results reviewed with the patient today 3+ microscopic hematuria. She otherwise offers no other issues or concerns at this time. [facility] Medical History Arthritis Osteoporosis Gastritis Sciatic nerve pain Surgical History Hx of cystoscopy Family History Sister Ovarian cancer Daughter Breast cancer Father Prostate cancer Social History Alcohol intake: current Alcohol intake frequency: does not drink Patient Tobacco Use Status: Never used Tobacco Female Reproductive History Menstrual Age of Menarche: 13 Review of Systems Const Reports as per HPI Eyes Reports no additional complaints ENT Reports no additional complaints Card Reports as per HPI Resp Reports no additional complaints GI Reports as per HPI Reports as per HPI Musc Reports as per HPI Neuro Reports no additional complaints Psych Reports no additional complaints Endo Reports as per HPI Monroe/Lymph Reports no additional complaints Aller/Immun Reports no additional complaints Physical Exam Const General: cooperative, healthy appearing, comfortable, no acute distress, well developed, alert and awake Orientation/consciousness: patient oriented x3 Limitations: no limitations HEENT Head: Yes normal to inspection, Yes normocephalic and Yes atraumatic Ears: hearing grossly normal bilaterally Eyes General: appearance normal, both eyes and all related structures Neck Neck: Yes normal visual inspection and Yes trachea midline Chest Chest palpation & inspection: normal inspection of the chest Resp Effort & Inspection: normal respiratory effort and able to speak in complete sentences Cardio Rate: regular rate GI Inspection: Yes normal to inspection General: Yes no CVA tenderness Back/Spine/Pelvis Back: no CVA tenderness Skin General skin exam: no rashes or lesions noted Neuro General: patient oriented x3 Extrem General: Yes normal to inspection Psych Appearance: grossly normal and well kempt Mental Status: mental status grossly normal Speech and movement: Normal speech and movement present and Clear speech present Affect: normal affect Attitude: cooperative Thought process: Normal thought process present Thought content: Normal thought content present Insight: Fair insight present (Psych) Judgement: Fair judgement present (Psych) Office Procedures Post Void Residual Post Residual Void Post Void Residual (PVR): 60 [id number] Void Residual by ultrasound Results AMB Urinalysis, Automated UA Leukoctes 15 Kishor/uL Last Edit by Tiffanie Mishra Nir on 10/17/24 16:05 UA Nitrite Negative Last Edit by Tiffanie Mishra [facility] on 10/17/24 16:05 UA Urobilinogen 0.2 mg/dL Last Edit by Tiffanie Mishra [facility] on 10/17/24 16:0 5 UA Protein 30 mg/dL Last Edit by Tiffanie Mishra [facility] on 10/17/24 16:05 UA pH 6.0 Last Edit by Tiffanie Mishra [facility] on 10/17/24 16:05 UA Blood 200 Hemal/uL Last Edit by Tiffanie Mishra [facility] on 10/17/24 16:05 UA Specific [place] 1.030 Last Edit by Tiffanie Mishra Nir on 10/17/24 16: 05 UA Ketone Positive Last Edit by Tiffanie Mishra [facility] on 10/17/24 16:05 UA Bilirubin 0 mg/dL Last Edit by Tiffanie Mishra [facility] on 10/17/24 16:05 UA Glucose 0 mg/dL Last Edit by Tiffanie Mishra [facility] on 10/17/24 16:05 Results Reviewed Results Reviewed: Laboratory Last Values Urine pH (Auto) 6.0 10/17/24 15:48 Specific [place] (Auto) 1.030 10/17/24 15:48 Urine Protein (Auto) 30 mg/dL 10/17/24 15:48 Glucose (UA)(Auto) 0 mg/dL 10/17/24 15:48 Urine Ketones (Auto) Positive 10/17/24 15:48 Urine Blood (Auto) 200 Hemal/uL 10/17/24 15:48 Urine Nitrite (Auto) Negative 10/17/24 15:48 Urine Bilirubin (Auto) 0 mg/dL 10/17/24 15:48 Urine Urobilinogen (Auto) 0.2 mg/dL 10/17/24 15:48 Leukocyte Esterase (Auto) 15 Kishor/uL 10/17/24 15:48 Assessment & Plan Assessment & Plan (1) OAB (overactive bladder): Code(s): N32.81 - Overactive bladder Category: Medical (2) Bilateral renal cysts: Comment: and micro hematuria Code(s): N28.1 - Cyst of kidney, acquired Category: Medical (3) Microscopic hematuria: Code(s): R31.29 - Other microscopic hematuria Category: Medical Plan In office urinalysis results reviewed with the patient today; as noted above; will send for urine cytology. PVR 60 mL. Patient currently denies any bothersome urinary issues or concerns. She reports be happy with current voiding parameters. Will continue tolterodine 4 mg as prescribed; refill provided. We discussed potential causes microscopic hematuria. Will continue with surveillance monitoring Follow-up in 6 months with PVR; or sooner with any issues, concerns, and or questions. Orders: Orders AMB Post Void Residual by ultrasound Today N32.81 - Overactive bladder AMB Urinalysis Automated Today Z13.9 - Encounter for screening, unspecified Urine Cytology Today R31.29 - Other microscopic hematuria Medications: Changed From tolterodine ER 4 mg PO DAILY 30 caps 5RF To tolterodine ER 4 mg PO DAILY 90 days 90 caps 2RF Patient Instructions: The patient had an opportunity to ask questions regarding the treatment plan. All questions were answered. Physical exam, labs, and imaging were discussed and reviewed in detail. As well as risks, benefits, and discussion of treatment choices. No major barriers to understanding were identified. The patient expressed understanding and agreement with the above treatment plan. The patient was made aware they should contact our office by phone for worsening of their current condition, the appearance of new symptoms, or with any questions or concerns. Compliance is encouraged with any medications and follow up testing that is ordered. It is a privilege to be allowed the opportunity to participate in? your urological care.? Again, if you have any questions or concerns If you have any questions or concerns please do not hesitate to contact me. The office is [phone]. This note is constructed using voice recognition software. While every effort has been made to ensure accuracy oracle technical architect errors may have been included. Yours sincerely, ALFA Ramirez-BC Coding Level of Care Code Est Pt Level 3 (67044) Complex EM visit Add On G2211 Diagnoses OAB (overactive bladder) N32.81 Bilateral renal cysts N28.1 Microscopic hematuria R31.29 CPT Codes Post Residual Void - PVR CPT Code: 59922-Enht Void Residual by ultrasound ([id number])
== END 2024-10-17 16:15 | disposition home or self-care (01) ==
PROVIDERS: PCP Family Medicine; Visit Provider Nurse Practitioner Family
DX: N32.81 Overactive bladder (principal); N28.1 Cyst of kidney, acquired; R31.29 Other microscopic hematuria; Z13.9 Encounter for screening, unspecified
CPT/HCPCS: 99213; G2211

== ENCOUNTER 2024-10-17 15:30 | Outpatient (REF) | payer OTHER, SELFPAY ==
[2024-10-17 16:49] LABS: Urine Cytology See Pathology rpt
== END 2024-10-17 15:31 | disposition home or self-care (01) ==
LOC: HO.LAB 15:30
PROVIDERS: PCP Family Medicine; Visit Provider Nurse Practitioner Family
DX: R31.29 Other microscopic hematuria (principal); N32.81 Overactive bladder; Z13.9 Encounter for screening, unspecified
CPT/HCPCS: 51798; 81003; 88112; 99212

== ENCOUNTER 2025-02-06 15:42 | Outpatient (REF) | payer OTHER, SELFPAY | END 2025-02-06 15:43 | disposition home or self-care (01) | LOC: HO.MAMMO 15:42 | PROVIDERS: PCP Family Medicine; Visit Provider Family Medicine | DX: Z12.31 Encounter for screening mammogram for malignant neoplasm of breast (principal) | CPT/HCPCS: 77063; 77067 ==

== ENCOUNTER → 2025-02-06 16:00 | Outpatient (BNV) | payer OTHER, SELFPAY | PROVIDERS: PCP Family Medicine; Visit Provider Internal Medicine | DX: Z12.31 Encounter for screening mammogram for malignant neoplasm of breast (principal) | CPT/HCPCS: 77063; 77067 ==

== ENCOUNTER 2025-03-19 11:34 | Outpatient (REF) | payer OTHER, SELFPAY ==
[2025-03-19 16:42] LABS: Urine Cytology See Pathology rpt
== END 2025-03-19 11:35 | disposition home or self-care (01) ==
LOC: HO.LAB 11:34
PROVIDERS: PCP Family Medicine; Visit Provider Nurse Practitioner Family
DX: R31.29 Other microscopic hematuria (principal)
CPT/HCPCS: 51798; 81003; 88112; 99212

== ENCOUNTER 2025-03-19 11:34 | Outpatient (AMB) | payer OTHER, SELFPAY ==
--- NOTE | 2025-03-19 11:47 | MHC.OFFVIS ---
Intake Visit Reasons: 6m with PVR Intake Note: Patient presents today for follow up on: OAB, Renal Cyst, and Microhematuria Urology Med: Tolterodine Antibiotic Allergy: None Blood Thinner: Aspirin PVR: 100ml's Medication Aide Required: Yes Medication Aide Language: Mica Plate Layer Hand Services: Medication Aide Present Accompanied by: Self / Same As Patient Allergies No Known Allergies Allergy (Verified 03/19/25 12:19) Medication List - Last Reconciled 03/19/25 by ALFA Ramirez- albuterol sulfate 90 mcg/actuation inhalation ammonium lactate 12% 1 appl topical BID aspirin 1 tab PO DAILY blood sugar diagnostic (OneTouch Ultra Test strips) As directed blood-glucose meter (OneTouch Ultra2 Meter) As directed calcium carbonate-vitamin D3 600 mg-10 mcg (400 unit) tabs PO DAILY clonazepam mg PO clotrimazole-betamethasone 1-0.05 % appl topical fluticasone propionate 250 mcg/actuation (Flovent Diskus) inhalation ibuprofen mg PO lancets (FreeStyle Lancets) As directed loratadine 10 mg PO DAILY meclizine mg PO nitroglycerin 0.4%(w/w) (Rectiv) OR DAILY omeprazole 20 mg PO DAILY pantoprazole 40 mg PO DAILY peg 400-propylene glycol 0.4-0.3 % (Systane (propylene glycol)) 1 drp ophthalmic (eye) rosuvastatin 40 mg PO DAILY tizanidine 2 mg PO TID tolterodine ER 4 mg PO DAILY 90 days triamcinolone acetonide 0.5% appl topical HPI Comments Details: Rebeca is a very pleasant 78-year-old Yemeni-speaking female patient of Dr. Oglesby who was accompanied by her friend at today's office visit. She has a PMH of arthritis, osteoporosis, gastritis, hyperlipidemia, and sciatica nerve pain. She presents to the office today for follow-up of her microscopic hematuria in lower urinary tract symptoms. In discussion with the patient today she reports since her last office visit here approximately 6 months ago she has had no bothersome urinary issues or concerns. She reports compliance with tolterodine as prescribed. She does report episodes of stress incontinence however feels these episodes are infrequent and is managing well independently. In office urinalysis results reviewed with the patient today 2+ microscopic hematuria previously noted to be 3+ microscopic hematuria. PVR 100 mL. She discusses her ongoing issues with her daughter who has been recently diagnosed with reoccurrence of breast cancer. Previous workup for microscopic hematuria has included an in office cystoscopy 03/[address] Tye Ness for persistent microscopic hematuria that noted bladder wall thickening, no suspicious bladder lesions were visualized. Previous workup has also included a CT urogram 01/01 bilateral renal cyst type 2 no suspicious masses no renal calculi. Urine cytology was sent on 12/21/2023 which was negative for malignant cells. She reports be happy with current voiding parameters. She denies any previous history of workplace chemical exposure and or smoking history. She denies urinary urgency, urinary frequency, nocturia, gross hematuria, dysuria, foul smelling urine, changes to urinary stream, flank pain, fever, and or chills. She otherwise offers no other issues or concerns at this time. Urine cytology: 01/01 & 11/04 Negative for high-grade urothelial carcinoma. [facility] Medical History Arthritis Osteoporosis Gastritis Sciatic nerve pain Surgical History Hx of cystoscopy Family History Sister Ovarian cancer Daughter Breast cancer Father Prostate cancer Social History Alcohol intake: current Alcohol intake frequency: does not drink Patient Tobacco Use Status: Never used Tobacco Female Reproductive History Menstrual Age of Menarche: 13 Review of Systems Const Reports as per HPI Eyes Reports no additional complaints ENT Reports no additional complaints Card Reports as per HPI Resp Reports no additional complaints GI Reports as per HPI Reports as per HPI Musc Reports as per HPI Neuro Reports no additional complaints Psych Reports no additional complaints Endo Reports as per HPI Monroe/Lymph Reports no additional complaints Aller/Immun Reports no additional complaints Physical Exam Const General: cooperative, healthy appearing, comfortable, no acute distress, well developed, alert and awake Orientation/consciousness: patient oriented x3 Limitations: language barrier HEENT Head: Yes normal to inspection, Yes normocephalic and Yes atraumatic Ears: hearing grossly normal bilaterally Eyes General: appearance normal, both eyes and all related structures Neck Neck: Yes normal visual inspection and Yes trachea midline Chest Chest palpation & inspection: normal inspection of the chest Resp Effort & Inspection: normal respiratory effort and able to speak in complete sentences Cardio Rate: regular rate GI Inspection: Yes normal to inspection General: Yes no CVA tenderness Back/Spine/Pelvis Back: no CVA tenderness Skin General skin exam: no rashes or lesions noted Neuro General: patient oriented x3 Extrem General: Yes normal to inspection Psych Appearance: grossly normal and well kempt Mental Status: mental status grossly normal Speech and movement: Normal speech and movement present and Clear speech present Affect: normal affect Attitude: cooperative Thought process: Normal thought process present Thought content: Normal thought content present Insight: Fair insight present (Psych) Judgement: Fair judgement present (Psych) Office Procedures Post Void Residual Post Residual Void Post Void Residual (PVR): 100 [id number] Void Residual by ultrasound Results AMB Urinalysis, Automated UA Leukoctes 15 Kishor/uL Last Edit by Beatris Hensley [facility] on 03/19/25 12:22 UA Nitrite Last Edit by Beatris Hensley [facility] on 03/19/25 12:22 UA Urobilinogen 0.2 mg/dL Last Edit by Beatris Hensley [facility] on 03/19/25 12:22 UA Protein 0 mg/dL Last Edit by Beatris Hensley [facility] on 03/19/25 12:22 UA pH 6.0 Last Edit by Beatris Hensley [facility] on 03/19/25 12:22 UA Blood 80 Hemal/uL Last Edit by Beatris Hensley [facility] on 03/19/25 12:22 UA Specific [place] 1.015 Last Edit by Beatris Hensley [facility] on 03/19/25 12:22 UA Ketone Last Edit by Beatris eHnsley [facility] on 03/19/25 12:22 UA Bilirubin 0 mg/dL Last Edit by Beatris Hensley [facility] on 03/19/25 12:22 UA Glucose 0 mg/dL Last Edit by Beatris Hensley [facility] on 03/19/25 12:22 Results Reviewed Results Reviewed: Laboratory Last Values Urine pH (Auto) 6.0 03/19/25 11:49 Specific [place] (Auto) 1.015 03/19/25 11:49 Urine Protein (Auto) 0 mg/dL 03/19/25 11:49 Glucose (UA)(Auto) 0 mg/dL 03/19/25 11:49 Urine Blood (Auto) 80 Hemal/uL 03/19/25 11:49 Urine Bilirubin (Auto) 0 mg/dL 03/19/25 11:49 Urine Urobilinogen (Auto) 0.2 mg/dL 03/19/25 11:49 Leukocyte Esterase (Auto) 15 Kishor/uL 03/19/25 11:49 Assessment & Plan Assessment & Plan (1) Microscopic hematuria: Code(s): R31.29 - Other microscopic hematuria Category: Medical Plan In office urinalysis results reviewed with the patient today; as noted above; will send for urine cytology. She reports be happy with current voiding parameters on tolterodine; will continue. She currently denies any bothersome urinary issues or concerns. Will continue with surveillance monitoring. Follow-up in 6 months with PVR; or sooner with any issues, concerns, and or questions. Orders: Orders AMB Urinalysis Automated Today Z13.9 - Encounter for screening, unspecified AMB Post Void Residual by ultrasound Today N32.81 - Overactive bladder Urine Cytology Today R31.29 - Other microscopic hematuria Patient Instructions: The patient had an opportunity to ask questions regarding the treatment plan. All questions were answered. Physical exam, labs, and imaging were discussed and reviewed in detail. As well as risks, benefits, and discussion of treatment choices. No major barriers to understanding were identified. The patient expressed understanding and agreement with the above treatment plan. The patient was made aware they should contact our office by phone for worsening of their current condition, the appearance of new symptoms, or with any questions or concerns. Compliance is encouraged with any medications and follow up testing that is ordered. It is a privilege to be allowed the opportunity to participate in? your urological care.? Again, if you have any questions or concerns If you have any questions or concerns please do not hesitate to contact me. The office is [phone]. This note is constructed using voice recognition software. While every effort has been made to ensure accuracy instructional assistant errors may have been included. Yours sincerely, SARAH Ramirez Coding Level of Care Code Est Pt Level 3 (70145) Complex EM visit Add On G2211 Diagnoses Microscopic hematuria R31.29 CPT Codes Post Residual Void - PVR CPT Code: 51818-Bizt Void Residual by ultrasound ([id number])
--- OUTSIDE RECORDS SUMMARY | 2025-03-19 13:16 | XMS_ITS | Encounter Summary ---
Author Organization [employer] Address [address] [place] [address] Care Team Providers Care Home Sales Consultant Name Role Phone Veronica Oglesby MD Primary Care Provider [phone] Reason for Visit * Reason Onset Date Comments Call Back Request 11/09/2023 Encounter Details Date Type Department Care Team ([facility] Contact Info) Description 11/09/2023 Telephone [facility] [address] [place] [address] Veronica Oglesby MD [address] [place], [place] [id number] Call Back Request Social History Tobacco Use Types Packs/Day Years Used Date Smoking Tobacco: Never Passive Smoke Exposure: Never Smokeless Tobacco: Never Alcohol Use Standard Drinks/Week Comments Never 0 (1 standard drink = 0.6 oz pur e alcohol) Depression Answer Date Recorded Patient Health Questionnaire-9 Score 5 08/06/2023 Patient Health Questionnaire-9 Score 5 08/06/2023 Last PHQ-9: Questionnaire Data Not on file 1 Housing Stability Answer Date Recorded What is your housing situation today? I have félix ramirez 07/27/[address] you li ve. Do you have problems with any of the following? None of the above 07/27/2023 Food Insecurity Answer Date Recorded Within the past 12 months, y ou worried that your food would run out before you got money to buy more: Never True 07/27/2023 Within the past 12 months,th e food you bought just didn't last and you didn't have enough money to get more: Never True Transportation Answer Date Recorded In the past 12 months, has l ack of transportation kept you from medical appts, meetings, work or from getting things needed for daily living? No 07/27/2023 Utilities Answer Date Recorded In the past 12 months, has t he electric, gas, oil or water company threatened to shut off services in your home? No 07/27/2023 Depression Answer Date Recorded Patient Health Questionnaire-2 Score 2 08/06/2023 Comments Unknown Sex and Gender Information Value Date Recorded Sex Assigned at Female 08/10/2022 10:18 AM EDT Legal Sex Female 10:18 AM EDT Gender Identity Female 08/10/2022 10:18 AM EDT Sexual Orientation Straight 08/10/2022 10 :18 AM EDT documented as of this encounter Miscellaneous Notes * Telephone Encounter - Brodie Farias - 11/09/2023 9:26 AM EST Tc from patient calling to get clarity on why appts are being held at [facility] rather than [facility] documented in this encounter Plan of Treatment Not on file documented as of this encounter Visit Diagnoses Not on filedocumented in this encounter Additional Health Concerns Assessment Noted Time PHQ-9 Depression Total Score: 5 08/06/20 23 10:38 AM EDT documented as of this encounter Care Teams Home Sales Consultant Relationship Specialty Start Date End Date Veronica Oglesby MD [address] [place] [address] PCP - General Family Medicine 11/24/22 documented as of this encounter
== END 2025-03-19 12:20 | disposition home or self-care (01) ==
LOC: HO.HUSH 11:34
PROVIDERS: PCP Family Medicine; Visit Provider Nurse Practitioner Family
DX: R31.29 Other microscopic hematuria (principal); Z13.9 Encounter for screening, unspecified
CPT/HCPCS: 99213; G2211

== ENCOUNTER 2025-09-18 10:29 | Outpatient (REF) | payer OTHER, SELFPAY ==
--- NOTE | ~2025-09-18 | MM_ITS ---
EXAMINATION(S): MM DIAGNOSTIC DIGITAL BREAST TOMOSYNTHESIS, RIGHT CLINICAL INFORMATION: According to the patient, right breast diffuse pain . No new masses. 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 Denies right focal pain. Denies any concerns of the left breast. COMPARISON: Comparison made to multiple prior, most recent February 06, 2025, and most remote August 13, 2018. TECHNIQUE: Digital breast tomosynthesis is performed in both the mediolateral oblique and craniocaudal views along with computer-aided detection (CAD). Synthesized 2D images are generated from the tomosynthesis. FINDINGS: BREAST COMPOSITION: There are scattered areas of fibroglandular density. RIGHT BREAST: Coarse calcification in the central breast, not significantly changed since at least 2017. No significant masses, suspicious calcifications or other abnormalities are seen. MM/MM tomosynthesis diagnostic RT IMPRESSION: RIGHT BREAST: Benign, no mammographic evidence of malignancy. Clinical follow-up is recommended for the concern of diffuse breast pain. Otherwise, patient may return to routine screening mammogram expected in January 2026. ASSESSMENT: BI-RADS: Category 2: Benign RECOMMENDATION: 1. Patient should be managed based on the clinical impression. 2. Otherwise, routine annual screening mammography. Results were provided to the patient at time of visit by the technologist. This patient's information was entered into a reminder system with a target due date for their next mammogram. Electronically signed by: Fawn Chavez MD 09/18/2025 12:36 PM [facility]
== END 2025-09-18 10:30 | disposition home or self-care (01) ==
LOC: HO.MAMMO 10:29
PROVIDERS: PCP Family Medicine; Visit Provider Family Medicine
DX: N64.4 Mastodynia (principal)
CPT/HCPCS: 77061; 77062; 77065; 77066

== ENCOUNTER → 2025-09-18 11:00 | Outpatient (BNV) | payer OTHER, SELFPAY | PROVIDERS: PCP Family Medicine; Visit Provider Radiology Body Imaging | DX: N64.4 Mastodynia (principal) | CPT/HCPCS: 77065; G0279 ==